=== PATIENT | female | born 1950 | race Caucasian/White ===

== ENCOUNTER 2020-07-19 15:00 | Inpatient (IN) | payer OTHER ==
[~2020-07-19] VITALS: Ht 167.6 cm; Wt 91.3 kg
[2020-07-24 08:43] LABS: BASOPHILS % (AUTO) 0.8 % (0.0-5.0); HEMATOCRIT 37.5 % (36-48); LYMPHOCYTES % (AUTO) 20.3 % (21.0-51.0); MEAN CORPUSCULAR HEMOGLOBIN 27.6 pg (27.0-33.0); MEAN CORPUSCULAR VOLUME 86.4 fL (79-99); NEUTROPHILS % (AUTO) 62.5 % (40.0-77.0); PLATELET COUNT (AUTO) 250 K/uL (130-400); RED BLOOD CELL COUNT(AUTO) 4.34 MIL/uL (4.00-5.50); RED CELL DISTRIBUTION WIDTH 14.7 % (11.0-15.5); WHITE BLOOD COUNT (AUTO) 4.7 K/uL (4.8-10.8)
[2020-07-24 08:50] LABS: CREATININE 1.3 mg/dL (0.5-1.5); POTASSIUM 4.5 mmol/L (3.5-5.1)
[2020-07-24 08:56] LABS: INR 0.94 (0.85-1.15); PARTIAL THROMBOPLASTIN TIME 35.2 SEC (26.3-35.5); PROTHROMBIN TIME 10.2 SEC (9.6-11.6)
[2020-07-26] MEDS ORDERED: CHLO25TA3 PO (10:59)
[2020-07-26] MEDS ORDERED: [UNRECOGNIZED DRUG - OTHER] PO (11:57)
[2020-07-26] MEDS ORDERED: MECO10005 PO (11:57)
[2020-07-26] MEDS ORDERED: FLUT1BLS3 IH (11:57)
[2020-07-26] MEDS ORDERED: FEXO180T94 PO (11:57)
[2020-07-26] MEDS ORDERED: BUPR-317 PO (11:57)
[2020-07-26] MEDS ORDERED: [UNRECOGNIZED DRUG - OTHER] PO (11:57)
[2020-07-26] MEDS ORDERED: ZINC PO (11:57)
[2020-07-26] MEDS ORDERED: OMEP40CA13 PO (11:57)
[2020-07-26] MEDS ORDERED: LINA290C PO (11:57)
[2020-07-26] MEDS ORDERED: GUAI120L62 PO (11:57)
[2020-07-27] VITALS (21 sets, daily range): BP systolic 109–154; BP diastolic 58–89
[2020-07-27] MEDS: CEFAZOLIN SODIUM 1 GM VIAL IVP SCH ×3 (06:00→20:57)
[2020-07-27] MEDS ORDERED: VILANTER IH PRN (09:15)
[2020-07-27] MEDS ORDERED: FLUTICASONE IH PRN (09:15)
[2020-07-27] MEDS ORDERED: [UNRECOGNIZED DRUG - REMARK] PO PRN (09:15)
[2020-07-27] MEDS ORDERED: [UNRECOGNIZED DRUG - OTHER] IH PRN (09:15)
[2020-07-27] MEDS ORDERED: GUAIFENESIN-CODEINE 5 ML SYRUP PO PRN (09:15)
[2020-07-27] MEDS ORDERED: UMECLIDIN IH PRN (09:15)
[2020-07-27] MEDS ORDERED: LACTATED RINGERS 1000ML 1,000 ML IV ONE (09:16)
[2020-07-27] MEDS: HYDROCHLOROTHIAZIDE 25 MG TABLET PO SCH (10:11)
[2020-07-27] MEDS: PANTOPRAZOLE SODIUM 40 MG TABLET.DR PO SCH (10:16)
[2020-07-27] MEDS ORDERED: LIDOCAINE PF 2% 5ML ABBOJECT ONE (10:31)
[2020-07-27] MEDS ORDERED: PROPOFOL 10 MG/ML 20ML VIAL IV ONE (10:32)
[2020-07-27] MEDS ORDERED: ROCURONIUM 10MG/1ML SYR 10 MG/ML ML ONE (10:32)
[2020-07-27] MEDS ORDERED: FENTANYL CITRATE PF 50 MCG/1 ML 2ML VIAL ONE (10:33)
[2020-07-27] MEDS ORDERED: ROPIVACAINE 0.5% 5MG/ML 30ML IJ ONE (10:36)
[2020-07-27] MEDS ORDERED: TRANEXAMIC ACID 1000MG/10ML ONE (10:41)
[2020-07-27] MEDS ORDERED: EPHEDRINE SULFATE 50 MG/ML AMPULE ONE (14:05)
[2020-07-27] MEDS ORDERED: NEOSTIGMINE 5MG/5ML SYR IV ONE (15:04)
[2020-07-27] MEDS ORDERED: GLYCOPYRROLATE 1 MG/5 ML SYRINGE ONE (15:04)
[2020-07-27] MEDS: ACETAMINOPHEN EXTRA STRENGTH 500 MG TABLET PO SCH ×2 (16:00→23:08)
[2020-07-27] MEDS ORDERED: ONDANSETRON HCL 4 MG/2 ML VIAL IVP PRN (16:00)
[2020-07-27] MEDS ORDERED: MORPHINE SULFATE 4 MG/1ML SYG IVP PRN (16:00)
[2020-07-27] MEDS ORDERED: OXYCODONE HCL 5 MG TAB PO PRN (16:00)
[2020-07-27] MEDS ORDERED: HYDROCODONE/ACETAMINOPHEN 5/325 MG TAB PO PRN (16:00)
[2020-07-27] MEDS: SODIUM CHLORIDE 0.9% 1000ML 1,000 ML IV SCH (16:00)
[2020-07-27] MEDS: ASPIRIN 81 MG EC TAB PO SCH (20:54)
[2020-07-28] MEDS: OXYCODONE HCL 5 MG TAB PO PRN ×5 (01:14→21:22)
[2020-07-28] MEDS: SODIUM CHLORIDE 0.9% 1000ML 1,000 ML IV SCH ×2 (02:00→12:00)
[2020-07-28 03:35] LABS: HEMATOCRIT 32.4 % (36-48); MEAN CORPUSCULAR HEMOGLOBIN 27.7 pg (27.0-33.0); MEAN CORPUSCULAR HGB CONC 32.7 g/dL (32.0-36.0); MEAN CORPUSCULAR VOLUME 84.6 fL (79-99); RED BLOOD CELL COUNT(AUTO) 3.83 MIL/uL (4.00-5.50)
[2020-07-28 03:50] LABS: CREATININE 1.3 mg/dL (0.5-1.5); POTASSIUM 3.9 mmol/L (3.5-5.1)
[2020-07-28 04:00] VITALS: BP 101/63
[2020-07-28] MEDS: CEFAZOLIN SODIUM 1 GM VIAL IVP SCH (04:44)
[2020-07-28] MEDS: PANTOPRAZOLE SODIUM 40 MG TABLET.DR PO SCH (07:47)
[2020-07-28] MEDS: HYDROCHLOROTHIAZIDE 25 MG TABLET PO SCH (07:49)
[2020-07-28] MEDS: ASPIRIN 81 MG EC TAB PO SCH ×2 (07:49→21:16)
[2020-07-28] MEDS: ACETAMINOPHEN EXTRA STRENGTH 500 MG TABLET PO SCH ×2 (07:49→16:12)
[2020-07-28] MEDS: POLYETHYLENE GLYCOL 3350 17 GM POWD.PACK PO SCH (07:50)
[2020-07-28] MEDS: BUPROPION HCL 150 MG TABLET.SA PO SCH (07:50)
[2020-07-28 08:00] VITALS: BP 107/65
[2020-07-28] MEDS: ***HM***(Linaclotide (Linzess) 290 MCG) PO SCH (09:00)
[2020-07-28 11:50] VITALS: BP 121/64
[2020-07-28 16:00] VITALS: BP 136/82
[2020-07-28 19:50] VITALS: BP 148/69
[2020-07-28 23:38] VITALS: BP 137/80
[2020-07-29 04:00] VITALS: BP 156/76
[2020-07-29] MEDS: PANTOPRAZOLE SODIUM 40 MG TABLET.DR PO SCH (06:23)
[2020-07-29] MEDS: OXYCODONE HCL 5 MG TAB PO PRN (06:26)
[2020-07-29] MEDS: ***HM***(Linaclotide (Linzess) 290 MCG) PO SCH (09:00)
[2020-07-29] MEDS: POLYETHYLENE GLYCOL 3350 17 GM POWD.PACK PO SCH (09:00)
[2020-07-29 09:24] VITALS: BP 161/74
[2020-07-29] MEDS: HYDROCHLOROTHIAZIDE 25 MG TABLET PO SCH (09:26)
[2020-07-29] MEDS: ASPIRIN 81 MG EC TAB PO SCH (09:26)
[2020-07-29] MEDS: BUPROPION HCL 150 MG TABLET.SA PO SCH (09:26)
[2020-07-29] MEDS: ACETAMINOPHEN EXTRA STRENGTH 500 MG TABLET PO SCH ×2 (09:28)
[2020-07-30] MEDS ORDERED: BISACODYL 10 MG SUPP.RECT RC PRN (16:00)
== END 2020-07-29 12:28 | disposition home health service (06) | DRG 483 ==
LOC: EDSTATUS 15:00 → UNDOADMIN 07-27 06:53 → DAHIP 07-27 06:53 → 3AH 07-27 16:59 → DAHIP 07-27 16:59
PROVIDERS: ADMIT Orthopaedic Surgery; ATTEND Orthopaedic Surgery
PROC: 0RRJ00Z Replacement of Right Shoulder Joint with Reverse Ball and Socket Synthetic Substitute, Open Approach (ICD-10-PCS; principal; 2020-07-27 12:46)
PROC: 3E0T3BZ Introduction of Anesthetic Agent into Peripheral Nerves and Plexi, Percutaneous Approach (ICD-10-PCS; 2020-07-27 12:46)
DX: M19.011 Primary osteoarthritis, right shoulder (principal); M75.101 Unspecified rotator cuff tear or rupture of right shoulder, not specified as traumatic; I25.10 Atherosclerotic heart disease of native coronary artery without angina pectoris; Z20.828 Contact with and (suspected) exposure to other viral communicable diseases; Z96.653 Presence of artificial knee joint, bilateral; E78.00 Pure hypercholesterolemia, unspecified; I10 Essential (primary) hypertension; F32.9 Major depressive disorder, single episode, unspecified; K21.9 Gastro-esophageal reflux disease without esophagitis; E11.9 Type 2 diabetes mellitus without complications; Z88.8 Allergy status to other drugs, medicaments and biological substances; Z90.49 Acquired absence of other specified parts of digestive tract; Z98.42 Cataract extraction status, left eye; Z98.41 Cataract extraction status, right eye; Z98.84 Bariatric surgery status
CPT/HCPCS: 36415; 73030; 80048; 85025; 85027; 85610; 85730; 86850; 86900; 86901; 87641; 93005; 97039; A4565; G0378; J0690; J2001; J2270; J2704; J2710; J2795; J3010; J3490; J7030; J7120; U0003

== ENCOUNTER 2020-07-31 18:11 | Inpatient (IN) | payer OTHER ==
[~2020-07-31] VITALS: Ht 165.1 cm; Wt 87.2 kg
[~2020-07-31 18:11] MED LIST: BUPR-317 PO; CHLO25TA3 PO; FEXO180T94 PO; FLUT1BLS3 IH; GUAI120L62 PO; LINA290C PO; MECO10005 PO; OMEP40CA13 PO; ZINC PO; [UNRECOGNIZED DRUG - OTHER] PO; [UNRECOGNIZED DRUG - OTHER] PO
[2020-07-31 19:48] LABS: BASOPHILS % (AUTO) 0.2 % (0.0-5.0); EOSINOPHILS % (AUTO) 0.3 % (0.0-8.0); LYMPHOCYTES % (AUTO) 3.4 % (21.0-51.0); MEAN CORPUSCULAR HGB CONC 35.1 g/dL (32.0-36.0); MEAN CORPUSCULAR VOLUME 79.5 fL (79-99); MONOCYTES % (AUTO) 7.1 % (3.0-13.0); NEUTROPHILS % (AUTO) 88.7 % (40.0-77.0); PLATELET COUNT (AUTO) 289 K/uL (130-400); RED CELL DISTRIBUTION WIDTH 14.1 % (11.0-15.5); WHITE BLOOD COUNT (AUTO) 11.6 K/uL (4.8-10.8)
[2020-07-31 20:04] LABS: BILIRUBIN,TOTAL 0.7 mg/dL (0.2-1.0); CREATININE 1.8 mg/dL (0.5-1.5); POTASSIUM 3.5 mmol/L (3.5-5.1); TOTAL PROTEIN, SERUM 6.8 g/dL (6.0-8.3)
[2020-07-31 20:09] LABS: INR 1.02 (0.85-1.15); PROTHROMBIN TIME 10.9 SEC (9.6-11.6)
[2020-07-31 20:11] LABS: PARTIAL THROMBOPLASTIN TIME 32.3 SEC (26.3-35.5)
[2020-08-01] MEDS ORDERED: ONDANSETRON HCL 4 MG/2 ML VIAL IV PRN
[2020-08-01] MEDS: CEFTRIAXONE SODIUM 1 GM IVP SCH (00:30)
[2020-08-01] MEDS ORDERED: PANTOPRAZOLE 40 MG/VIAL ONE ×2 (04:17→09:12)
[2020-08-01] MEDS ORDERED: CEFTRIAXONE SODIUM 1 GM ONE (04:19)
[2020-08-01 06:05] LABS: BASOPHILS % (AUTO) 0.1 % (0.0-5.0); EOSINOPHILS % (AUTO) 1.8 % (0.0-8.0); HEMATOCRIT 28.7 % (36-48); LYMPHOCYTES % (AUTO) 4.5 % (21.0-51.0); MEAN CORPUSCULAR HEMOGLOBIN 28.1 pg (27.0-33.0); MEAN CORPUSCULAR HGB CONC 35.2 g/dL (32.0-36.0); MEAN CORPUSCULAR VOLUME 79.9 fL (79-99); MONOCYTES % (AUTO) 7.1 % (3.0-13.0); NEUTROPHILS % (AUTO) 86.3 % (40.0-77.0); PLATELET COUNT (AUTO) 260 K/uL (130-400); RED BLOOD CELL COUNT(AUTO) 3.59 MIL/uL (4.00-5.50); RED CELL DISTRIBUTION WIDTH 14.2 % (11.0-15.5); WHITE BLOOD COUNT (AUTO) 9.6 K/uL (4.8-10.8)
[2020-08-01 06:19] LABS: ALBUMIN 2.6 g/dL (3.5-5.0); BILIRUBIN,TOTAL 0.4 mg/dL (0.2-1.0); CREATININE 1.4 mg/dL (0.5-1.5); POTASSIUM 3.1 mmol/L (3.5-5.1)
[2020-08-01 07:15] LABS: APPEARANCE,URINE Clear (CLEAR); BILIRUBIN,URINE Negative (NEGATIVE); COLOR,URINE Dark Yellow (YELLOW); GLUCOSE, URINE (UA) Negative (NEGATIVE); KETONES,URINE Negative (NEGATIVE); LEUKOCYTE ESTERASE ,URINE Moderate (NEGATIVE); NITRATE,URINE Negative (NEGATIVE); OCCULT BLOOD,URINE Small (NEGATIVE); PH,URINE 5.5 (5.0-8.0); PROTEIN,URINE Negative (NEGATIVE)
[2020-08-01 07:42] LABS: BACTERIA,URINE Few /HPF (None Seen); CALCIUM OXALATE CRYSTALS,UR Few /LPF (None Seen); HYALINE CASTS, URINE 0-1 /LPF (0-1 /LPF)
[2020-08-01] MEDS: PANTOPRAZOLE 40 MG/VIAL IVP SCH ×2 (09:00→22:54)
[2020-08-01] MEDS ORDERED: LACTATED RINGERS 1000ML 1,000 ML IV ONE (09:16)
[2020-08-01 17:35] VITALS: BP 118/66
[2020-08-01 20:00] VITALS: BP 119/80
[2020-08-01] MEDS: LACTATED RINGERS 1000ML 1,000 ML IV SCH (23:07)
[2020-08-01 23:49] VITALS: BP 124/63
[2020-08-02] MEDS: CEFTRIAXONE SODIUM 1 GM IVP SCH (02:06)
[2020-08-02 04:00] VITALS: BP 124/70
[2020-08-02 06:07] LABS: BASOPHILS % (AUTO) 0.2 % (0.0-5.0); EOSINOPHILS % (AUTO) 0.9 % (0.0-8.0); HEMATOCRIT 26.7 % (36-48); LYMPHOCYTES % (AUTO) 11.1 % (21.0-51.0); MEAN CORPUSCULAR HEMOGLOBIN 27.4 pg (27.0-33.0); MEAN CORPUSCULAR HGB CONC 33.7 g/dL (32.0-36.0); MEAN CORPUSCULAR VOLUME 81.4 fL (79-99); MONOCYTES % (AUTO) 9.9 % (3.0-13.0); NEUTROPHILS % (AUTO) 77.6 % (40.0-77.0); PLATELET COUNT (AUTO) 239 K/uL (130-400); RED BLOOD CELL COUNT(AUTO) 3.28 MIL/uL (4.00-5.50); RED CELL DISTRIBUTION WIDTH 14.1 % (11.0-15.5); WHITE BLOOD COUNT (AUTO) 6.7 K/uL (4.8-10.8)
[2020-08-02 06:21] LABS: HEMOGLOBIN A1C 6.7 % (4.0-6.0)
[2020-08-02 06:39] LABS: ALBUMIN 2.6 g/dL (3.5-5.0); BILIRUBIN,TOTAL 0.3 mg/dL (0.2-1.0); CREATININE 1.1 mg/dL (0.5-1.5); MAGNESIUM 2.3 mg/dL (1.80-2.40); PHOSPHORUS 3.4 mg/dL (2.5-4.9); POTASSIUM 3.1 mmol/L (3.5-5.1); THYROID STIMULATING HORMONE 0.45 uIU/mL (0.36-3.74); TOTAL PROTEIN, SERUM 5.8 g/dL (6.0-8.3)
[2020-08-02] MEDS ORDERED: POTASSIUM CHLORIDE 20 MEQ ERTAB PO SCH ×2 (08:15→17:00)
[2020-08-02] MEDS: PANTOPRAZOLE 40 MG/VIAL IVP SCH ×2 (09:00→22:32)
[2020-08-02 09:22] VITALS: BP 128/63
[2020-08-02 12:39] VITALS: BP 128/72
[2020-08-02] MEDS: LACTATED RINGERS 1000ML 1,000 ML IV SCH ×2 (16:00→17:33)
[2020-08-02 18:03] VITALS: BP 141/71
[2020-08-02 19:50] VITALS: BP 130/53
[2020-08-03 00:05] VITALS: BP 142/66
[2020-08-03] MEDS: LACTATED RINGERS 1000ML 1,000 ML IV SCH (00:38)
[2020-08-03] MEDS: CEFTRIAXONE SODIUM 1 GM IVP SCH (00:41)
[2020-08-03 04:04] VITALS: BP 143/67
[2020-08-03 05:29] LABS: BASOPHILS % (AUTO) 0.2 % (0.0-5.0); EOSINOPHILS % (AUTO) 2.9 % (0.0-8.0); HEMATOCRIT 26.1 % (36-48); LYMPHOCYTES % (AUTO) 21.2 % (21.0-51.0); MEAN CORPUSCULAR HEMOGLOBIN 27.6 pg (27.0-33.0); MEAN CORPUSCULAR HGB CONC 33.7 g/dL (32.0-36.0); MEAN CORPUSCULAR VOLUME 81.8 fL (79-99); MONOCYTES % (AUTO) 9.1 % (3.0-13.0); NEUTROPHILS % (AUTO) 66.4 % (40.0-77.0); PLATELET COUNT (AUTO) 250 K/uL (130-400); RED BLOOD CELL COUNT(AUTO) 3.19 MIL/uL (4.00-5.50); WHITE BLOOD COUNT (AUTO) 5.5 K/uL (4.8-10.8)
[2020-08-03 06:04] LABS: ALBUMIN 2.6 g/dL (3.5-5.0); BILIRUBIN,TOTAL 0.2 mg/dL (0.2-1.0); CREATININE 1.2 mg/dL (0.5-1.5); MAGNESIUM 2.3 mg/dL (1.80-2.40); POTASSIUM 3.4 mmol/L (3.5-5.1); TOTAL PROTEIN, SERUM 5.7 g/dL (6.0-8.3)
[2020-08-03 08:00] VITALS: BP 136/87
[2020-08-03] MEDS ORDERED: POTASSIUM CHLORIDE 20 MEQ ERTAB PO SCH (08:30)
[2020-08-03] MEDS: PANTOPRAZOLE 40 MG/VIAL IVP SCH (09:42)
[2020-08-03 12:00] VITALS: BP 152/59
[2020-08-03] MEDS ORDERED: FERR325T22 PO (12:02)
[2020-08-03] MEDS ORDERED: FOLI0.8T2 PO (12:02)
[2020-08-03] MEDS ORDERED: AMLO2.5T4 PO (12:10)
[2020-08-03 16:00] VITALS: BP 136/63
== END 2020-08-03 18:00 | disposition home health service (06) | DRG 378 ==
LOC: EDH 18:11 → EDHIP 08-01 → 4AH 08-01 07:45 → EDHIP 08-01 08:25 → 3DH 08-01 17:22
PROVIDERS: ADMIT Internal Medicine; ATTEND Internal Medicine
DX: K92.2 Gastrointestinal hemorrhage, unspecified (principal); N17.9 Acute kidney failure, unspecified; E87.1 Hypo-osmolality and hyponatremia; E11.9 Type 2 diabetes mellitus without complications; E87.6 Hypokalemia; E86.0 Dehydration; I10 Essential (primary) hypertension; F32.9 Major depressive disorder, single episode, unspecified; E87.8 Other disorders of electrolyte and fluid balance, not elsewhere classified; R19.7 Diarrhea, unspecified; R19.5 Other fecal abnormalities; D64.9 Anemia, unspecified; Z96.611 Presence of right artificial shoulder joint; Z20.828 Contact with and (suspected) exposure to other viral communicable diseases; Z82.49 Family history of ischemic heart disease and other diseases of the circulatory system; Z82.5 Family history of asthma and other chronic lower respiratory diseases; Z83.3 Family history of diabetes mellitus; Z88.6 Allergy status to analgesic agent; Z88.5 Allergy status to narcotic agent; Z88.8 Allergy status to other drugs, medicaments and biological substances; Z79.899 Other long term (current) drug therapy
CPT/HCPCS: 36415; 71045; 80053; 81001; 82270; 83036; 83735; 84100; 84132; 84443; 84484; 85025; 85027; 85610; 85730; 86850; 86900; 86901; 87088; 87324; 93005; C9113; G0378; J0696; J7120; U0003

== ENCOUNTER 2020-10-24 16:54 | Emergency (ER) | payer MEDICARE, OTHER ==
[~2020-10-24 16:54] MED LIST changes: +AMLO2.5T4 PO; -CHLO25TA3 PO; +FERR325T22 PO; +FOLI0.8T2 PO; -OMEP40CA13 PO; +OMEP40CA21 PO
[2020-10-24 17:58] LABS: BASOPHILS % (AUTO) 0.5 % (0.0-5.0); EOSINOPHILS % (AUTO) 4.4 % (0.0-8.0); HEMATOCRIT 35.2 % (36-48); LYMPHOCYTES % (AUTO) 18.5 % (21.0-51.0); MEAN CORPUSCULAR HGB CONC 33.5 g/dL (32.0-36.0); MEAN CORPUSCULAR VOLUME 83.6 fL (79-99); MONOCYTES % (AUTO) 9.5 % (3.0-13.0); NEUTROPHILS % (AUTO) 66.8 % (40.0-77.0); PLATELET COUNT (AUTO) 265 K/uL (130-400); RED BLOOD CELL COUNT(AUTO) 4.21 MIL/uL (4.00-5.50); RED CELL DISTRIBUTION WIDTH 13.4 % (11.0-15.5); WHITE BLOOD COUNT (AUTO) 7.5 K/uL (4.8-10.8)
[2020-10-24 18:09] LABS: CREATININE 1.2 mg/dL (0.5-1.5); POTASSIUM 4.1 mmol/L (3.5-5.1)
[2020-10-24 18:11] LABS: INR 0.95 (0.85-1.15); PROTHROMBIN TIME 10.4 SEC (9.6-11.6)
[2020-10-24 18:12] LABS: PARTIAL THROMBOPLASTIN TIME 32.3 SEC (26.3-35.5)
[2020-10-24 18:14] LABS: ALBUMIN 3.1 g/dL (3.5-5.0); BILIRUBIN,TOTAL 0.4 mg/dL (0.2-1.0); TOTAL PROTEIN, SERUM 7.1 g/dL (6.0-8.3)
[2020-10-24] MEDS ORDERED: LIDOCAINE HCL-MPF 1% 2ML VIAL ONE (19:37)
[2020-10-24] MEDS ORDERED: CEFTRIAXONE 1G VIAL ONE (19:37)
== END 2020-10-24 20:38 | disposition home or self-care (01) ==
LOC: EDH 16:54
DX: T81.31XA Disruption of external operation (surgical) wound, not elsewhere classified, initial encounter (principal); G89.18 Other acute postprocedural pain; M25.561 Pain in right knee; I10 Essential (primary) hypertension; K21.9 Gastro-esophageal reflux disease without esophagitis; F32.9 Major depressive disorder, single episode, unspecified; Z88.6 Allergy status to analgesic agent; Z88.8 Allergy status to other drugs, medicaments and biological substances; Z96.652 Presence of left artificial knee joint; Z96.651 Presence of right artificial knee joint; Z90.49 Acquired absence of other specified parts of digestive tract; Y83.8 Other surgical procedures as the cause of abnormal reaction of the patient, or of later complication, without mention of misadventure at the time of the procedure; Y92.89 Other specified places as the place of occurrence of the external cause
CPT/HCPCS: 36415; 73562; 80053; 85025; 85610; 85730; 96372; 99284; J0696; J3490

== ENCOUNTER → 2025-05-09 | Outpatient (CLI) | payer MEDICARE ==
[~2025-05-09] MED LIST changes: -BUPR-317 PO; +BUPR-721 PO
--- NOTE | 2025-05-09 17:52 | HMCIMG ---
EXAM: XR Right Forearm, 2 Views. CLINICAL HISTORY: 74 year old female with a right forearm fracture. COMPARISON: None provided. FINDINGS: BONES: Healing fracture of the distal radius. JOINTS: No dislocation. The joint spaces are normal. SOFT TISSUES: Overlying cast, the soft tissues are unremarkable. IMPRESSION: 1. Healing fracture of the distal radius with overlying cast. /[place]
== END | disposition home or self-care (01) ==
LOC: RAH 16:05
PROVIDERS: ATTEND Orthopaedic Surgery Orthopaedic Surgery of the Spine
DX: S52.501D Unspecified fracture of the lower end of right radius, subsequent encounter for closed fracture with routine healing (principal); X58.XXXD Exposure to other specified factors, subsequent encounter
CPT/HCPCS: 73090

== ENCOUNTER → 2025-07-29 | Outpatient (CLI) | payer MEDICARE ==
[2025-07-29 09:18] LABS: ASPARTATE AMINOTRANSFERASE 23.0 U/L (10-37); CREATININE 1.4 mg/dL (0.5-1.0); GLOMERULAR FILTR. RATE CALC 40.0 mL/min (>90); GLUCOSE,RANDOM 181.0 mg/dL (70-105); LDL DIRECT 48.0 mg/dL (0-99); SODIUM SERUM 140.0 mmol/L (136-145); TOTAL PROTEIN, SERUM 7.9 g/dL (6.0-8.3); UREA NITROGEN, BLOOD 27.0 mg/dL (7-18)
== END | disposition home or self-care (01) ==
LOC: LAB 08:30
PROVIDERS: ATTEND Internal Medicine
DX: E11.65 Type 2 diabetes mellitus with hyperglycemia (principal); E88.810 Metabolic syndrome
CPT/HCPCS: 36415; 80053; 80061; 82533; 83036